=== PATIENT | male | born 1985 | race Caucasian/White ===

== ENCOUNTER 2024-10-24 12:40 | Inpatient (IN) | payer OTHER ==
[2024-10-24 14:03] VITALS: BMI 23.7
[2024-10-24] MEDS ORDERED: BISMUTH SUBSALICYLATE 262 MG/15 ML BTL PO PRN (14:21)
[2024-10-24] MEDS ORDERED: IBUPROFEN 400 MG TABLET (FP) PO PRN (14:21)
[2024-10-24] MEDS ORDERED: MAGNESIUM HYDROX 2400MG/30ML ORAL SUSPENSION 30 ML CUP PO PRN (14:21)
[2024-10-24] MEDS ORDERED: BENZOCAINE/MENTHOL (CHLORASEPTIC ) LOZENGE MM PRN (14:21)
[2024-10-24] MEDS ORDERED: BENZONATATE 200 MG CAPSULE PO PRN (14:21)
[2024-10-24] MEDS ORDERED: DICYCLOMINE HCL 10 MG CAPSULE PO PRN (14:21)
[2024-10-24] MEDS ORDERED: NALOXONE (NARCAN) HCL 4 MG/0.1 ML SPRAY NS PRN (14:21)
[2024-10-24] MEDS ORDERED: POLYETHYLENE GLYCOL (HEALTHYLAX) 3350 17 GM PACKET PO PRN (14:21)
[2024-10-24] MEDS ORDERED: ACETAMINOPHEN 325 MG TABLET (FP) PO PRN (14:21)
[2024-10-24] MEDS ORDERED: MAG HYDROX/AL HYDROX/SIMETH 30 ML UNIT-DOSE CUP PO PRN (14:21)
[2024-10-24] MEDS ORDERED: LOPERAMIDE HCL 2 MG CAPSULE PO PRN (14:21)
[2024-10-24] MEDS ORDERED: guaiFENesin 600 MG TABLET.ER (FP) PO PRN (14:21)
[2024-10-24] MEDS ORDERED: METOPROLOL TARTRATE 25 MG TABLET (FP) ONE (15:25)
[2024-10-24] MEDS ORDERED: chlordiazePOXIDE HCL 25 MG CAPSULE ONE (15:25)
[2024-10-24] MEDS ORDERED: levETIRAcetam 500 MG TABLET (FP) PO ONE (15:25)
[2024-10-24] MEDS: levETIRAcetam 500 MG TABLET (FP) PO SCH (15:27)
[2024-10-24] MEDS: METOPROLOL TARTRATE 25 MG TABLET (FP) PO ONE (15:27)
[2024-10-24] MEDS: chlordiazePOXIDE HCL 25 MG CAPSULE PO ONE (15:27)
[2024-10-24] MEDS: NICOTINE POLACRILEX 2 MG LOZENGE BC PRN (16:16)
[2024-10-24] MEDS: chlordiazePOXIDE HCL 25 MG CAPSULE PO SCH (17:19)
[2024-10-24] MEDS: hydrOXYzine PAMOATE 25 MG CAPSULE (FP) PO PRN (17:20)
[2024-10-24] MEDS: THIAMINE 100 MG TABLET PO SCH (22:09)
[2024-10-24] MEDS: MELATONIN 5 MG TABLETS PO SCH (22:09)
[2024-10-25 09:52] LABS: CHLORIDE 103 mmol/L (98-107); POTASSIUM 3.9 mmol/L (3.5-5.1); SODIUM 138 mmol/L (136-145)
[2024-10-25 09:59] LABS: HEMATOCRIT 36.2 % (35.4-49); HEMOGLOBIN 12.1 GM/dL (11.7-16.9); MCH 32.2 pg (25.7-33.7); MCHC 33.4 g/dl (32.0-35.9); MEAN CELL VOLUME 96.4 fl (80-96); MEAN PLT VOLUME 8.5 fl (7.5-11.1); PLATELET COUNT 146 10^3/uL (134-434); RBC 3.76 M/mm3 (4.00-5.60); WHITE BLOOD COUNT 6.1 K/mm3 (4.0-10.0)
[2024-10-25 10:10] LABS: ALBUMIN 3.6 g/dl (3.4-5.0)
[2024-10-25 10:13] LABS: CREATININE 0.9 mg/dL (0.55-1.3); SGOT/AST 33 U/L (15-37)
[2024-10-25 10:14] LABS: BILIRUBIN,TOTAL 0.3 mg/dL (0.2-1); TOT PROT 6.6 g/dl (6.4-8.2)
[2024-10-25 10:16] LABS: ALK PHOS 57 U/L (45-117); CALCIUM 9.1 mg/dL (8.5-10.1)
[2024-10-25 10:17] LABS: ANION GAP 5 mmol/L (4-13); BLOOD UREA NITROGEN 10.4 mg/dL (7-18); CO2 29 mmol/L (21-32); GLUCOSE,RANDOM 114 mg/dL (74-106)
[2024-10-25 10:21] LABS: SGPT/ALT 43 U/L (13-61)
[2024-10-25] MEDS: PRENATAL VITAMINS W/ FOLIC ACID TABLET (FP) PO SCH (10:29)
[2024-10-25] MEDS: NICOTINE POLACRILEX 2 MG GUM BUC PRN (20:02)
[2024-10-25] MEDS: GABAPENTIN 100 MG CAPSULE PO SCH (22:12)
[2024-10-26] MEDS: chlordiazePOXIDE HCL 25 MG CAPSULE PO SCH (05:49)
[2024-10-26] MEDS: IBUPROFEN 600 MG TABLET (FP) PO PRN (09:30)
[2024-10-26] MEDS: chlordiazePOXIDE HCL 25 MG CAPSULE PO PRN (14:43)
[2024-10-27] MEDS: METHOCARBAMOL 500 MG TABLET PO PRN (01:49)
[2024-10-27] MEDS: chlordiazePOXIDE HCL 10 MG CAPSULE PO SCH (06:00)
[2024-10-27] MEDS ORDERED: FLUoxetine HCL 10 MG CAPSULE PO SCH (13:33)
[2024-10-27] MEDS: FLUoxetine HCL 10 MG CAPSULE PO SCH (13:49)
[2024-10-27] MEDS: FLUoxetine HCL 20 MG CAPSULE PO SCH (13:52)
[2024-10-27] MEDS: hydrOXYzine PAMOATE 25 MG CAPSULE (FP) PO PRN (17:28)
[2024-10-27] MEDS: chlordiazePOXIDE HCL 10 MG CAPSULE PO PRN (20:17)
[2024-10-27] MEDS: ONDANSETRON *ODT* 4 MG TABLET SL PRN (22:27)
[2024-10-27] MEDS: SUVOREXANT 10 MG TABLET PO PRN (22:56)
[2024-10-27] MEDS: propRANOLol HCL 10 MG TABLET PO ONE (22:57)
[2024-10-28] MEDS: chlordiazePOXIDE HCL 10 MG CAPSULE PO SCH (05:33)
[2024-10-28] MEDS: buPROPion HCL 75 MG TABLET PO SCH (10:33)
[2024-10-29] MEDS: chlordiazePOXIDE HCL 10 MG CAPSULE PO ONE (06:01)
[2024-10-29 08:39] VITALS: BP 121/64; PULSE 68; RESP 18; TEMP 97.7
== END 2024-10-29 09:55 | disposition home or self-care (01) | DRG 775 ==
LOC: YASAS 12:40 → Y3N 15:25
PROVIDERS: ADMIT Allergy & Immunology; ATTEND Allergy & Immunology
PROC: HZ2ZZZZ Detoxification Services for Substance Abuse Treatment (ICD-10-PCS; principal; 2024-10-24)
DX: F10.230 Alcohol dependence with withdrawal, uncomplicated (principal); F17.290 Nicotine dependence, other tobacco product, uncomplicated; F41.1 Generalized anxiety disorder; F90.9 Attention-deficit hyperactivity disorder, unspecified type; G47.00 Insomnia, unspecified; Z56.0 Unemployment, unspecified; Z59.00 Homelessness unspecified
CPT/HCPCS: 36415; 80053; 80305; 80307; 85027; 86780; 93005; 93010; Q0162